=== PATIENT | male | born 1995 | race Two or more races ===

== ENCOUNTER 2022-12-16 18:52 | Emergency (ER) | payer SELFPAY ==
[~2022-12-16] VITALS: Ht 193 cm; Wt 80.0 kg
[2022-12-16 19:02] VITALS: BP 112/91
== END 2022-12-16 22:35 | disposition left against medical advice (07) ==
LOC: ER 19:01
DX: F41.9 Anxiety disorder, unspecified (principal); Z53.21 Procedure and treatment not carried out due to patient leaving prior to being seen by health care provider

== ENCOUNTER 2023-01-14 22:38 | Emergency (ER) | payer SELFPAY ==
[~2023-01-14] VITALS: Ht 190.5 cm; Wt 78.8 kg
[2023-01-15 00:50] VITALS: BP 118/79
== END 2023-01-15 01:19 | disposition home or self-care (01) ==
LOC: ER 22:38
DX: F32.9 Major depressive disorder, single episode, unspecified (principal); F20.9 Schizophrenia, unspecified; F12.90 Cannabis use, unspecified, uncomplicated; F15.90 Other stimulant use, unspecified, uncomplicated; Z00.00 Encounter for general adult medical examination without abnormal findings; Z59.00 Homelessness unspecified

== ENCOUNTER 2023-02-11 12:30 | Emergency (ER) | payer MEDICARE, MEDICAID ==
[~2023-02-11] VITALS: Ht 190.5 cm; Wt 74.2 kg
[2023-02-11 12:48] VITALS: BP 139/77
[2023-02-11 13:44] LABS: Urine Bacteria NONE SEEN /hpf (None Seen); Urine Blood Negative /uL (Negative); Urine Specific Gravity 1.031 (1.001-1.035); Urine Sperm PRESENT /hpf (None Seen); Urine WBC 3 /hpf (0 - 3)
[2023-02-11 14:17] LABS: Alcohol, Urine < 3.0 mg/dL (0-10); Amphetamine Screen, Urine POSITIVE (NEGATIVE); Barbiturate Scree,Urine NEGATIVE (NEGATIVE); Benzodiazephine Screen, Urine NEGATIVE (NEGATIVE); Cannabinoid Screen, Urine POSITIVE (NEGATIVE); Cocaine Screen, Urine NEGATIVE (NEGATIVE)
[2023-02-11 14:27] LABS: Opiate Scree,Urine NEGATIVE (NEGATIVE); Phencyclidine Screen, Urine NEGATIVE (NEGATIVE)
== END 2023-02-11 20:00 | disposition left against medical advice (07) ==
LOC: ER 12:30
DX: F20.9 Schizophrenia, unspecified (principal); F41.9 Anxiety disorder, unspecified; F32.9 Major depressive disorder, single episode, unspecified; F15.10 Other stimulant abuse, uncomplicated; F17.210 Nicotine dependence, cigarettes, uncomplicated; F12.10 Cannabis abuse, uncomplicated; Z59.00 Homelessness unspecified; Z79.899 Other long term (current) drug therapy
CPT/HCPCS: 80307; 81001